=== PATIENT | female | born 1945 | race Caucasian/White ===

== ENCOUNTER 2022-11-06 15:16 | Observation (INO) | payer MEDICARE, MEDICAID ==
[~2022-11-06] VITALS: Ht 157.5 cm; Wt 86.2 kg
[2022-11-06 15:39] VITALS: BP 126/68; PULSE 75; RESP 20; TEMP 96.7; O2SAT 96
[2022-11-06 16:22] VITALS: O2SAT 96
[2022-11-06 16:35] LABS: BASOPHILS # (AUTO) 0.2 K/uL (0.00-0.22); BASOPHILS % (AUTO) 1.5 % (0.0-2.0); EOSINOPHILS # (AUTO) 0.7 K/uL (0-0.4); EOSINOPHILS % (AUTO) 4.4 % (0.0-4.0); HEMATOCRIT 36.8 % (36-48); HEMOGLOBIN 12.1 g/dL (12.0-16.0); LYMPHOCYTES # (AUTO) 1.8 K/uL (2.5-16.5); LYMPHOCYTES % (AUTO) 11.6 % (20.5-51.1); MEAN CORPUSCULAR HEMOGLOBIN 29 pg (27-31); MEAN CORPUSCULAR HGB CONC 33 g/dL (33-37); MEAN CORPUSCULAR VOLUME 86.7 fL (80-94); MONOCYTES # (AUTO) 0.8 K/uL (0.8-1.0); NEUTROPHILS # (AUTO) 12.1 K/uL (1.8-7.7); NEUTROPHILS % (AUTO) 77.5 % (42.2-75.2); PLATELET COUNT (AUTO) 336 K/uL (140-450); RED BLOOD CELL COUNT(AUTO) 4.25 MIL/uL (4.20-5.40); RED CELL DISTRIBUTION WIDTH 15.2 % (11.6-13.7); WHITE BLOOD COUNT (AUTO) 15.6 K/uL (4.8-10.8)
[2022-11-06 16:56] LABS: ALANINE AMINOTRANSFERASE 18 U/L (12-78); ALBUMIN 2.4 g/dL (3.4-5.0); ALKALINE PHOSPHATASE 57 U/L (50-136); ANION GAP 9.5 (8-16); ASPARTATE AMINOTRANSFERASE 18 U/L (15-37); CALCIUM 8.5 mg/dL (8.5-10.1); CARBON DIOXIDE 25.8 mmol/L (21-32); CHLORIDE 100 mmol/L (98-107); CREATININE 1.1 mg/dL (0.6-1.3); GLUCOSE 119 mg/dL (74-106); POTASSIUM 4.3 mmol/L (3.5-5.1); SODIUM SERUM 131 mmol/L (136-145); TOTAL BILIRUBIN 0.4 mg/dL (0.0-1.0); TOTAL PROTEIN, SERUM 6.9 g/dL (6.4-8.2); UREA NITROGEN, BLOOD 17 mg/dL (7-18)
[2022-11-06 17:01] LABS: LACTIC ACID 2.3 mmol/L (0.4-2.0)
[2022-11-06] MEDS ORDERED: ASPIRIN 81 MG TAB.CHEW PO ONE (17:20)
[2022-11-06 18:32] VITALS: O2SAT 96
[2022-11-06] MEDS ORDERED: MAG SULF 2000 MG/WATER PREMIX 50 ML IV PRN (18:35)
[2022-11-06] MEDS ORDERED: MAGNESIUM OXIDE 400 MG TAB PO PRN (18:35)
[2022-11-06] MEDS ORDERED: ONDANSETRON 4 MG/2 ML VIAL IVP PRN (18:35)
[2022-11-06] MEDS ORDERED: KCL 20 MEQ IN 100 mL PREMIX 200 ML IV PRN (18:35)
[2022-11-06] MEDS ORDERED: MORPHINE SULFATE 2 MG/ML SYR IVP PRN (18:35)
[2022-11-06] MEDS ORDERED: HYDROcodone/APAP 5/325 MG 1 TAB TAB PO PRN (18:35)
[2022-11-06] MEDS ORDERED: POTASSIUM CHLORIDE 10 MEQ TABER PO PRN (18:35)
[2022-11-06] MEDS ORDERED: ACETAMINOPHEN 325 MG TAB PO PRN (18:35)
[2022-11-06] MEDS ORDERED: LISI40TA8 PO (19:35)
[2022-11-06] MEDS ORDERED: METF-353 PO (19:35)
[2022-11-06] MEDS ORDERED: ACET-10509 PO (19:35)
[2022-11-06] MEDS ORDERED: SYN.1 PO (19:35)
[2022-11-06] MEDS ORDERED: ATOR20TA PO (19:35)
[2022-11-06] MEDS ORDERED: SYN.05 PO (19:35)
[2022-11-06] MEDS ORDERED: [UNRECOGNIZED DRUG - CODE] PO (19:35)
[2022-11-06] MEDS ORDERED: HYDR-1100 PO (19:35)
[2022-11-06] MEDS ORDERED: SITA100T8 PO (19:35)
[2022-11-06] MEDS ORDERED: ATEN50TA8 PO (19:35)
[2022-11-06 20:15] VITALS: O2SAT 96
[2022-11-07 01:32] VITALS: O2SAT 96
[2022-11-07 03:45] VITALS: O2SAT 96
[2022-11-07 06:50] LABS: BASOPHILS # (AUTO) 0.1 K/uL (0.00-0.22); BASOPHILS % (AUTO) 0.4 % (0.0-2.0); EOSINOPHILS # (AUTO) 0.5 K/uL (0-0.4); EOSINOPHILS % (AUTO) 3.3 % (0.0-4.0); HEMATOCRIT 34.9 % (36-48); HEMOGLOBIN 11.5 g/dL (12.0-16.0); LYMPHOCYTES % (AUTO) 12.7 % (20.5-51.1); MEAN CORPUSCULAR HEMOGLOBIN 28 pg (27-31); MEAN CORPUSCULAR HGB CONC 33 g/dL (33-37); MEAN CORPUSCULAR VOLUME 86.1 fL (80-94); MONOCYTES # (AUTO) 0.7 K/uL (0.8-1.0); MONOCYTES % (AUTO) 4.5 % (1.7-9.3); NEUTROPHILS # (AUTO) 12.6 K/uL (1.8-7.7); NEUTROPHILS % (AUTO) 79.1 % (42.2-75.2); PLATELET COUNT (AUTO) 316 K/uL (140-450); RED BLOOD CELL COUNT(AUTO) 4.06 MIL/uL (4.20-5.40); RED CELL DISTRIBUTION WIDTH 15.1 % (11.6-13.7); WHITE BLOOD COUNT (AUTO) 15.9 K/uL (4.8-10.8)
[2022-11-07 07:09] LABS: ALANINE AMINOTRANSFERASE 16 U/L (12-78); ALBUMIN 2.1 g/dL (3.4-5.0); ALKALINE PHOSPHATASE 47 U/L (50-136); ANION GAP 10.8 (8-16); ASPARTATE AMINOTRANSFERASE 18 U/L (15-37); CALCIUM 8.1 mg/dL (8.5-10.1); CARBON DIOXIDE 25.4 mmol/L (21-32); CHLORIDE 101 mmol/L (98-107); GLUCOSE 103 mg/dL (74-106); MAGNESIUM 1.7 mg/dL (1.8-2.4); POTASSIUM 4.2 mmol/L (3.5-5.1); SODIUM SERUM 133 mmol/L (136-145); TOTAL BILIRUBIN 0.6 mg/dL (0.0-1.0); TOTAL PROTEIN, SERUM 6.2 g/dL (6.4-8.2); UREA NITROGEN, BLOOD 16 mg/dL (7-18)
[2022-11-07] MEDS ORDERED: ASPIRIN 81 MG TAB.CHEW PO SCH (11:15)
[2022-11-07] MEDS ORDERED: NACL 0.9% 1,000 ML IV SCH (11:20)
[2022-11-07] MEDS ORDERED: LEVOTHYROXINE 0.05 MG TAB PO SCH (11:30)
[2022-11-07] MEDS ORDERED: cefTRIAXone 2,000 MG in DEXTROSE 5% 100 ML IV SCH (12:00)
[2022-11-07] MEDS ORDERED: cefTRIAXone 2,000 MG VIAL ONE (12:15)
[2022-11-07] MEDS ORDERED: LEVO0.173 PO (15:27)
[2022-11-07 16:15] VITALS: O2SAT 94
[2022-11-07 16:27] VITALS: BP 132/50; PULSE 70; RESP 20; TEMP 99.2
[2022-11-07] MEDS ORDERED: ATORVASTATIN 20 MG TAB PO SCH (21:00)
== END 2022-11-07 16:58 | disposition home or self-care (01) ==
LOC: MED 15:16 → MMU 18:33
PROVIDERS: ADMIT Internal Medicine; ATTEND Internal Medicine
DX: E03.9 Hypothyroidism, unspecified (principal); Z20.822 Contact with and (suspected) exposure to COVID-19; I21.4 Non-ST elevation (NSTEMI) myocardial infarction; D72.829 Elevated white blood cell count, unspecified; E87.20 Acidosis, unspecified; E87.1 Hypo-osmolality and hyponatremia; I10 Essential (primary) hypertension; I51.7 Cardiomegaly; I24.8 Other forms of acute ischemic heart disease; F03.90 Unspecified dementia, unspecified severity, without behavioral disturbance, psychotic disturbance, mood disturbance, and anxiety; Z79.899 Other long term (current) drug therapy
CPT/HCPCS: 36415; 71045; 80053; 83605; 83735; 83880; 84439; 84443; 84484; 85025; 87040; 87426; 93005; 96361; 96365; 96372; 99285; G0378; J0696; J1644; J7060; Q0092

== ENCOUNTER 2022-12-04 16:44 | Inpatient (IN) | payer MEDICARE, MEDICAID ==
[~2022-12-04] VITALS: Ht 149.9 cm; Wt 70.8 kg
[~2022-12-04 16:44] MED LIST: ACET-10509 PO; ATOR20TA PO; LEVO0.173 PO; METF-353 PO; SITA100T8 PO; [UNRECOGNIZED DRUG - CODE] PO
[2022-12-04 17:30] VITALS: BP 136/83; PULSE 80; RESP 16; TEMP 97; O2SAT 99
[2022-12-04 19:26] LABS: BASOPHILS # (AUTO) 0.1 K/uL (0.00-0.22); BASOPHILS % (AUTO) 0.9 % (0.0-2.0); EOSINOPHILS % (AUTO) 0.3 % (0.0-4.0); HEMATOCRIT 35.3 % (36-48); HEMOGLOBIN 11.5 g/dL (12.0-16.0); LYMPHOCYTES # (AUTO) 2.3 K/uL (2.5-16.5); LYMPHOCYTES % (AUTO) 16.9 % (20.5-51.1); MEAN CORPUSCULAR HEMOGLOBIN 28 pg (27-31); MEAN CORPUSCULAR HGB CONC 33 g/dL (33-37); MEAN CORPUSCULAR VOLUME 84.8 fL (80-94); MONOCYTES % (AUTO) 7.3 % (1.7-9.3); NEUTROPHILS # (AUTO) 10.3 K/uL (1.8-7.7); NEUTROPHILS % (AUTO) 74.6 % (42.2-75.2); PLATELET COUNT (AUTO) 383 K/uL (140-450); RED BLOOD CELL COUNT(AUTO) 4.16 MIL/uL (4.20-5.40); RED CELL DISTRIBUTION WIDTH 15.8 % (11.6-13.7); WHITE BLOOD COUNT (AUTO) 13.8 K/uL (4.8-10.8)
[2022-12-04 19:44] LABS: ALANINE AMINOTRANSFERASE 17 U/L (12-78); ALBUMIN 2.4 g/dL (3.4-5.0); ALKALINE PHOSPHATASE 67 U/L (50-136); ANION GAP 14.5 (8-16); ASPARTATE AMINOTRANSFERASE 14 U/L (15-37); CALCIUM 9.5 mg/dL (8.5-10.1); CARBON DIOXIDE 23.4 mmol/L (21-32); CHLORIDE 102 mmol/L (98-107); GLUCOSE 109 mg/dL (74-106); POTASSIUM 3.9 mmol/L (3.5-5.1); SODIUM SERUM 136 mmol/L (136-145); TOTAL BILIRUBIN 0.4 mg/dL (0.0-1.0); TOTAL PROTEIN, SERUM 7.5 g/dL (6.4-8.2); UREA NITROGEN, BLOOD 20 mg/dL (7-18)
[2022-12-04 20:11] LABS: FREE T4 (FREE THYROXINE) 2.39 ng/dL (0.76-1.46)
[2022-12-04] MEDS ORDERED: NACL 0.9% 1,000 ML IV ONE (20:15)
[2022-12-04] MEDS ORDERED: ASPIRIN 325 MG TAB PO ONE (20:15)
[2022-12-04 21:15] LABS: APPEARANCE,URINE CLEAR (CLEAR); BILIRUBIN,URINE NEGATIVE (NEGATIVE); BLOOD, URINE NEGATIVE (NEGATIVE); COLOR,URINE YELLOW (YELLOW); LEUKOCYTE ESTERASE ,URINE 1+ (NEGATIVE); NITRITE, URINE POSITIVE (NEGATIVE); PROTEIN,URINE NEGATIVE (NEGATIVE); UGLUCOSE NEGATIVE (NEGATIVE); UROBILINOGEN,URINE 0.2 EU/dL (0.2 - 1)
[2022-12-04 21:33] LABS: BACTERIA,URINE 3+ /HPF (None Seen); MUCUS,URINE 3+ /LPF (None Seen); RBC,URINE 0-5 /HPF (0-5); SQUAMOUS EPITHELIAL CELL,UR 4-10 (MOD) /LPF (0-3 (FEW)); TRICHOMONAS,URINE None Seen /HPF (None Seen); YEAST,URINE None Seen /HPF (None Seen)
[2022-12-04] MEDS ORDERED: MAGNESIUM OXIDE 400 MG TAB PO PRN (21:50)
[2022-12-04] MEDS ORDERED: ACETAMINOPHEN 325 MG TAB PO PRN (21:50)
[2022-12-04] MEDS ORDERED: MORPHINE SULFATE 4 MG/ML SYR IVP PRN (21:50)
[2022-12-04] MEDS ORDERED: ONDANSETRON 4 MG/2 ML VIAL IVP PRN (21:50)
[2022-12-04] MEDS ORDERED: HYDROcodone/APAP 5/325 MG 1 TAB TAB PO PRN (21:50)
[2022-12-04] MEDS ORDERED: MAG SULF 2000 MG/WATER PREMIX 50 ML IV PRN (21:50)
[2022-12-04] MEDS ORDERED: POTASSIUM CHLORIDE 10 MEQ TABER PO PRN (21:50)
[2022-12-04] MEDS ORDERED: KCL 20 MEQ IN 100 mL PREMIX 200 ML IV PRN (21:50)
[2022-12-04] MEDS ORDERED: hePARIN / DEXT 5% PREMIX 250 ML IV SCH (21:55)
[2022-12-04] MEDS ORDERED: HEPARIN PER PHARMACY MC PRN (21:55)
[2022-12-04 22:43] VITALS: PULSE 60; RESP 18; O2SAT 98
[2022-12-04] MEDS ORDERED: cefTRIAXone 1,000 MG VIAL ONE (23:13)
[2022-12-05] VITALS: BP 145/74; PULSE 54; PULSE 61; RESP 18; TEMP 97.6; O2SAT 98
[2022-12-05 04:00] VITALS: BP 150/79; PULSE 49; PULSE 64; RESP 18; TEMP 97.9; O2SAT 98
[2022-12-05 06:22] LABS: BASOPHILS # (AUTO) 0.1 K/uL (0.00-0.22); BASOPHILS % (AUTO) 1.1 % (0.0-2.0); EOSINOPHILS # (AUTO) 0.2 K/uL (0-0.4); EOSINOPHILS % (AUTO) 1.4 % (0.0-4.0); HEMOGLOBIN 11.2 g/dL (12.0-16.0); LYMPHOCYTES # (AUTO) 2.6 K/uL (2.5-16.5); LYMPHOCYTES % (AUTO) 22.9 % (20.5-51.1); MEAN CORPUSCULAR HEMOGLOBIN 28 pg (27-31); MEAN CORPUSCULAR HGB CONC 33 g/dL (33-37); MEAN CORPUSCULAR VOLUME 84.4 fL (80-94); MONOCYTES # (AUTO) 0.9 K/uL (0.8-1.0); MONOCYTES % (AUTO) 7.8 % (1.7-9.3); NEUTROPHILS # (AUTO) 7.6 K/uL (1.8-7.7); NEUTROPHILS % (AUTO) 66.8 % (42.2-75.2); PLATELET COUNT (AUTO) 383 K/uL (140-450); RED BLOOD CELL COUNT(AUTO) 4.03 MIL/uL (4.20-5.40); RED CELL DISTRIBUTION WIDTH 15.8 % (11.6-13.7); WHITE BLOOD COUNT (AUTO) 11.4 K/uL (4.8-10.8)
[2022-12-05 06:33] LABS: ANION GAP 12.7 (8-16); CALCIUM 9.1 mg/dL (8.5-10.1); CHLORIDE 105 mmol/L (98-107); CREATININE 0.8 mg/dL (0.6-1.3); GLUCOSE 98 mg/dL (74-106); POTASSIUM 3.7 mmol/L (3.5-5.1); SODIUM SERUM 139 mmol/L (136-145); UREA NITROGEN, BLOOD 18 mg/dL (7-18)
[2022-12-05 06:39] LABS: MAGNESIUM 1.8 mg/dL (1.8-2.4)
[2022-12-05 08:00] VITALS: BP 154/75; PULSE 53; PULSE 54; RESP 16; RESP 18; TEMP 97.6; O2SAT 98
[2022-12-05 08:27] LABS: INR 1.27 (0.8-1.2); PROTHROMBIN TIME 13.2 secs (10.8-13.4)
[2022-12-05 08:32] LABS: PARTIAL THROMBOPLASTIN TIME 90.8 secs (22-35.6)
[2022-12-05] MEDS ORDERED: hePARIN / DEXT 5% PREMIX 250 ML IV SCH (08:50)
[2022-12-05] MEDS: ASPIRIN 81 MG TAB.CHEW PO SCH (09:00)
[2022-12-05] MEDS: ATORVASTATIN 20 MG TAB PO SCH (09:47)
[2022-12-05 12:00] VITALS: BP 147/70; PULSE 60; PULSE 68; RESP 18; TEMP 97.1; O2SAT 97
[2022-12-05 16:00] VITALS: BP 142/68; PULSE 63; PULSE 91; RESP 20; TEMP 98.4; O2SAT 95
[2022-12-05 20:00] VITALS: BP 144/76; PULSE 69; PULSE 70; RESP 18; TEMP 97.9; O2SAT 97
[2022-12-05] MEDS: hePARIN / DEXT 5% PREMIX 250 ML IV SCH (22:42)
[2022-12-06] VITALS: BP 139/78; PULSE 64; PULSE 66; RESP 18; TEMP 97.6; O2SAT 97
[2022-12-06 04:00] VITALS: BP 142/89; PULSE 62; PULSE 72; RESP 18; TEMP 97.6; O2SAT 97
[2022-12-06] MEDS ORDERED: DEXTROSE 50% 50 ML SYR IVP PRN (05:00)
[2022-12-06] MEDS ORDERED: INSULIN LISPRO SLIDING SCALE 100 UNITS/ML VIAL SUBQ PRN (05:00)
[2022-12-06 05:31] LABS: BASOPHILS % (AUTO) 0.2 % (0.0-2.0); EOSINOPHILS # (AUTO) 0.6 K/uL (0-0.4); EOSINOPHILS % (AUTO) 5.6 % (0.0-4.0); HEMATOCRIT 34.9 % (36-48); HEMOGLOBIN 11.4 g/dL (12.0-16.0); LYMPHOCYTES # (AUTO) 2.4 K/uL (2.5-16.5); LYMPHOCYTES % (AUTO) 21.9 % (20.5-51.1); MEAN CORPUSCULAR HEMOGLOBIN 28 pg (27-31); MEAN CORPUSCULAR HGB CONC 33 g/dL (33-37); MEAN CORPUSCULAR VOLUME 84.5 fL (80-94); MONOCYTES # (AUTO) 1.1 K/uL (0.8-1.0); MONOCYTES % (AUTO) 9.7 % (1.7-9.3); NEUTROPHILS # (AUTO) 6.9 K/uL (1.8-7.7); NEUTROPHILS % (AUTO) 62.6 % (42.2-75.2); PLATELET COUNT (AUTO) 381 K/uL (140-450); RED BLOOD CELL COUNT(AUTO) 4.13 MIL/uL (4.20-5.40); WHITE BLOOD COUNT (AUTO) 11.1 K/uL (4.8-10.8)
[2022-12-06 05:42] LABS: ANION GAP 10.7 (8-16); CARBON DIOXIDE 25.1 mmol/L (21-32); CHLORIDE 105 mmol/L (98-107); CREATININE 0.9 mg/dL (0.6-1.3); GLUCOSE 112 mg/dL (74-106); POTASSIUM 3.8 mmol/L (3.5-5.1); SODIUM SERUM 137 mmol/L (136-145); UREA NITROGEN, BLOOD 17 mg/dL (7-18)
[2022-12-06 05:59] LABS: MAGNESIUM 1.7 mg/dL (1.8-2.4); PHOSPHORUS 4.5 mg/dL (2.5-4.9)
[2022-12-06] MEDS: hePARIN / DEXT 5% PREMIX 250 ML IV SCH (06:09)
[2022-12-06] MEDS: BLOOD GLUCOSE MONITORING 1 DEV DEV FS SCH ×2 (06:58→11:30)
[2022-12-06] MEDS ORDERED: REGADENOSON 0.4 MG/5 ML SYR IV SCH (07:16)
[2022-12-06 08:00] VITALS: BP 148/83; PULSE 66; PULSE 73; RESP 18; TEMP 96.2; O2SAT 98
[2022-12-06] MEDS: ASPIRIN 81 MG TAB.CHEW PO SCH (09:48)
[2022-12-06] MEDS: ATORVASTATIN 20 MG TAB PO SCH (09:48)
[2022-12-06 13:07] LABS: INR 1.15 (0.8-1.2); PARTIAL THROMBOPLASTIN TIME 48.1 secs (22-35.6)
[2022-12-06] MEDS ORDERED: LISI10TA30 PO (15:51)
[2022-12-06] MEDS ORDERED: ATOR20TA40 PO (15:51)
[2022-12-06] MEDS ORDERED: ASPI81CT95 PO (15:51)
[2022-12-06 16:00] VITALS: BP 115/62; PULSE 77; RESP 18; TEMP 98.1; O2SAT 99
[2022-12-06 16:07] VITALS: BP 148/83; PULSE 66; RESP 18; TEMP 96.2
[2022-12-07] MEDS ORDERED: lisinopriL 10 MG TAB PO SCH (09:00)
== END 2022-12-06 16:45 | disposition home or self-care (01) | DRG 281 ==
LOC: MED 16:44 → MMU 21:47 → MTU 22:12
PROVIDERS: ADMIT Hospitalist; ATTEND Hospitalist
DX: I21.4 Non-ST elevation (NSTEMI) myocardial infarction (principal); E44.1 Mild protein-calorie malnutrition; I24.9 Acute ischemic heart disease, unspecified; I10 Essential (primary) hypertension; E03.9 Hypothyroidism, unspecified; E11.9 Type 2 diabetes mellitus without complications; E78.00 Pure hypercholesterolemia, unspecified; Z79.1 Long term (current) use of non-steroidal anti-inflammatories (NSAID); Z79.899 Other long term (current) drug therapy; Z68.31 Body mass index [BMI] 31.0-31.9, adult
CPT/HCPCS: 36415; 71045; 71275; 80048; 80053; 81001; 82948; 83735; 83880; 84100; 84439; 84443; 84484; 85025; 85379; 85610; 85730; 87081; 87086; 93005; 96361; 96374; 99285; A9500; A9502; J0696; J1644; J2785; Q0092; Q9967